=== PATIENT | female | born 1985 | race Caucasian/White ===

== ENCOUNTER 2017-03-21 09:10 | Emergency (ER) | payer OTHER ==
--- NOTE | 2017-03-21 10:48 | ED ---
Throat Pain/Nasal Congestion - HPI Summary HPI Summary: 32 female presents with complaints of ear pain bilaterally, sore throat headache , and congestion that began approximately 1 week ago. Patient states she was sick with a cough and congestion about 2 weeks ago that resolved however 2-3 days later she began getting these new symptoms. Patient has tried Mucinex for the past 5 days, as well as cold and flu medication. She also has used vicks and has been taking hot showers without any relief. Patient states she feels congested but is unable to blow her nose due to ear pain and nothing comes out. Admits to subjective fever/chills. Denies cough, nausea, vomiting and difficulty breathing. Denies PMHx and any other complaints. Nothing makes symptoms better or worse. - History of Current Complaint Chief Complaint: UCRespiratory Time Seen by Provider: 03/21/17 10:08 Hx Obtained From: Patient Onset/Duration: Sudden Onset, Lasting Weeks - 1, Worse Since Severity: Mild Associated Signs And Symptoms: Positive: Dysphagia, Sinus Discomfort, Nasal Discharge Cough: None - Allergies/Home Medications Allergies/Adverse Reactions: Allergies Allergy/AdvReac Type Severity Reaction Status Date / Time Latex Allergy Severe HIVES/ITCHI Verified 03/31/14 08:54 NG PMH/Surg Hx/FS Hx/Imm Hx Endocrine/Hematology History: Denies: Hx Diabetes Cardiovascular History: Denies: Hx Hypertension Respiratory History: Denies: Hx Asthma Musculoskeletal History: Reports: Hx Tendonitis - RIGHT WRIST Sensory History: Reports: Hx Contacts or Glasses - GLASSES Denies: Hx Hearing Aid Opthamlomology History: Reports: Hx Contacts or Glasses - GLASSES Psychiatric History: Reports: Hx Anxiety - MED NEEDED - Surgical History Surgery Procedure, Year, and Place: CHOLECYSTECTOMY 1997 [facility]. RIGHT FOOT-EXTRA BONE AGE 20 [facility]. HEAD/NECK SURGERY AGE 21 [facility]. RIGHT WRIST/HAND-2013 Hx Anesthesia Reactions: No - Immunization History Immunizations Up to Date: Yes Infectious Disease History: No Infectious Disease History: Denies: Hx Clostridium Difficile, History Other Infectious Disease, Traveled Outside the [place] in Last 30 Days - Family History Known Family History: Positive: Hypertension - Social History Alcohol Use: Occasionally Alcohol Amount: 2 DRINKS Substance Use Type: Reports: None Smoking Status (MU): Light Every Day Tobacco Smoker Type: Cigarettes Amount Used/How Often: 1/4 PPD Length of Time of Smoking/Using Tobacco: 10 YRS Have You Smoked in the Last Year: Yes Review of Systems Positive: Fever, Chills Eyes: Negative Positive: Sore Throat, Ear Ache, Nasal Discharge Cardiovascular: Negative Respiratory: Negative Gastrointestinal: Negative Musculoskeletal: Negative Neurological: Negative Positive: Headache All Other Systems Reviewed And Are Negative: Yes Physical Exam Triage Information Reviewed: Yes Vital Signs On Initial Exam: Initial Vitals Temp Pulse Resp BP Pulse Ox 97.3 F 90 18 138/88 99 03/21/17 09:29 03/21/17 09:29 03/21/17 09:29 03/21/17 09:29 03/21/17 09:29 bp slightly elevated. recommended follow up with PCP Vital Signs Reviewed: Yes Appearance: Positive: No Pain Distress, Well-Nourished, Ill-Appearing Skin: Positive: Warm, Skin Color Reflects Adequate Perfusion, Dry Head/Face: Positive: Normal Head/Face Inspection Eyes: Positive: Normal, Conjunctiva Clear ENT: Positive: Hearing grossly normal, Pharyngeal erythema, Nasal congestion, TMs normal - fluid behind TM b/l, Tonsillar swelling. Negative: Nasal drainage , TM bulging, TM dull, TM red, Tonsillar exudate, Trismus, Muffled/hoarse voice Dental: Positive: Cervical Lymphadenopathy Neck: Positive: Supple, Nontender Respiratory/Lung Sounds: Positive: Clear to Auscultation, Breath Sounds Present. Negative: Rales, Rhonchi, Wheezes Cardiovascular: Positive: Normal, RRR, Pulses are Symmetrical in both Upper and Lower Extremities Abdomen Description: Positive: Nontender, Soft Bowel Sounds: Positive: Present Musculoskeletal: Positive: Normal, Strength/ROM Intact Neurological: Positive: Normal, Sensory/Motor Intact, Alert, Oriented to Person Place, Time Psychiatric: Positive: Normal AVPU Assessment: Alert Diagnostics - Vital Signs Vital Signs Temp Pulse Resp BP Pulse Ox 03/21/17 09:29 97.3 F 90 18 138/88 99 - Laboratory Lab Statement: Any lab studies that have been ordered have been reviewed, and results considered in the medical decision making process. EENT Course/Dx - Course Course Of Treatment: strep culture obtained and negative. patient will be treated symptomatically with zyrtec-d, flonase and continue mucinex and ibuprofen. hot showers and humidified air. fluids and rest. follow up. aware of worsening signs and symptoms. - Differential Diagnoses Differential Diagnoses: Allergic Rhinitis, Cerumen Impaction, Influenza, Otitis Externa, Otitis Media, Sinusitis, Tonsilitis, Uveitis, URI/Bronchitis - Diagnoses Provider Diagnoses: URI (upper respiratory infection) Discharge - Discharge Plan Condition: Stable Disposition: HOME Prescriptions: Cetirizine-Pseudoephedrine [Zyrtec-D Allergy/Congesti] 1 tab PO DAILY #20 tab Fluticasone NASAL * [Flonase *] 2 spray BOTH NARES DAILY #1 spray Patient Education Materials: Upper Respiratory Infection (ED), Allergic Rhinitis (ED) Forms: *Work Release Referrals: Tommy Issa MD [Primary Care Provider] - Additional Instructions: Continue taking Mucinex as desired. Ibuprofen for pain and fevers. TAke Zyrtec-D which is over the counter to help with fluid build up, congestion and pressure behind ears. Use flonase nasal spray to help with nasal congestion while symptoms persist. Chloraseptic spray to help soothe throat. Drink plenty of fluids and get plenty of rest. Take hot showers and use humidifier at night if able. Follow up with PCP, re-check BP. If symptoms worsen or do not improve in the next 7 days please seek medical attention.
[2017-03-21] MEDS ORDERED: Ibuprofen TAB* 600 MG PO ONE (10:54)
[2017-03-21 11:24] VITALS: BP 135/79
== END 2017-03-21 11:25 | disposition home or self-care (01) ==
LOC: UCEAST 09:10
DX: J06.9 Acute upper respiratory infection, unspecified (principal); F41.9 Anxiety disorder, unspecified; Z90.49 Acquired absence of other specified parts of digestive tract; Z91.040 Latex allergy status; F17.210 Nicotine dependence, cigarettes, uncomplicated
CPT/HCPCS: 87651; 99212; A9270-GY; G0463

== ENCOUNTER 2017-08-01 07:25 | Day surgery (SDC) | payer OTHER ==
[~2017-08-01 07:25] MED LIST: Buffered Lidocaine 0.9% SYRIN* 5 ML/SYR SYRINGE INTRADERM ONE; Dexamethasone IV* 4 MG/ML 1 ML (4 MG) IV SLOW PU ONE; Famotidine IV* 10 MG/ML 2 ML (20 mg) IV ONE
[2017-08-01] MEDS ORDERED: Famotidine IV* 10 MG/ML 2 ML (20 mg) ONE (07:36)
[2017-08-01] MEDS ORDERED: Dexamethasone IV* 4 MG/ML 1 ML (4 MG) ONE (07:36)
[2017-08-01] MEDS ORDERED: fentaNYL* 50 MCG/ML 2 ML VIAL (100 MCG VIAL) ONE ×2 (08:49→10:12)
[2017-08-01] MEDS ORDERED: Mivacurium Chloride* 20 MG/10 ML VIAL IV ONE (08:49)
[2017-08-01] MEDS ORDERED: Lidocaine 2% PF * 5 ML VIAL ONE (08:49)
[2017-08-01] MEDS ORDERED: Midazolam* 1 MG/ML 2 ML VIAL (2 MG) ONE (08:49)
[2017-08-01] MEDS ORDERED: Propofol* 10 MG/ML 20 ML BTL IV PUSH ONE (08:49)
[2017-08-01] MEDS ORDERED: fentaNYL* 50 MCG/ML 2 ML VIAL (100 MCG VIAL) IV PRN (08:52)
[2017-08-01] MEDS ORDERED: oxyCODONE/Acetamin 5/325 MG* TAB PO PRN (08:52)
[2017-08-01] MEDS ORDERED: PROCHLORPERAZINE INJ 5 MG/ML 2 ML VIAL IV PRN (08:52)
[2017-08-01] MEDS ORDERED: Ondansetron INJ* 2 MG/ML VIAL ONE (09:14)
[2017-08-01] MEDS ORDERED: Glycopyrrolate IV* 0.2 MG/ML 1 ML VIAL ONE (09:32)
[2017-08-01] MEDS ORDERED: Neostigmine Methylsulfate* 2 MG/2 ML SYRINGE ONE (09:32)
[2017-08-01] MEDS ORDERED: PROCHLORPERAZINE INJ 5 MG/ML 2 ML VIAL ONE (10:07)
[2017-08-01] MEDS ORDERED: HYDROcodone/ACET. 7.5/325 LIQ* 15 ML UDC ONE (10:39)
[2017-08-01 11:00] VITALS: BP 136/57
--- NOTE | 2017-08-01 15:40 | OP ---
DATE OF OPERATION: 08/01/17 - [facility] DATE OF : 89 SURGEON: Min Marcum MD ANESTHESIOLOGIST: Yun Roldan MD ANESTHESIA: General PRE-OP DIAGNOSIS: Chronic tonsillitis. POST-OP DIAGNOSIS: Chronic tonsillitis. OPERATIVE PROCEDURE: Tonsillectomy. BRIEF HISTORY: This is a 32-year-old with recurring tonsillitis as well as frequent recurring peritonsillar abscess. Has elected for surgical therapy. DESCRIPTION OF PROCEDURE: The patient was taken to the operating room, general anesthetic was given, the patient was intubated. Tongue, mandible, and soft palate were retracted. Coblator was used to remove the tonsils. Once hemostasis was obtained, the patient was awakened and sent to recovery room in stable condition. Instrument and sponge count correct. Blood loss minimal. [id number] #: [id number] MTDD
== END 2017-08-01 11:30 | disposition home or self-care (01) ==
LOC: OR 07:25
PROVIDERS: ATTEND Otolaryngology
DX: J35.01 Chronic tonsillitis (principal); J45.909 Unspecified asthma, uncomplicated; F17.200 Nicotine dependence, unspecified, uncomplicated
CPT/HCPCS: 81025; 88304; J0780; J1100; J2250; J2405; J2704; J3010

== ENCOUNTER 2018-03-29 08:47 | Emergency (ER) | payer OTHER ==
[2018-03-29 09:07] VITALS: BP 128/80
--- NOTE | 2018-03-29 10:28 | UC ---
Throat Pain/Nasal Julio HPI - HPI Summary HPI Summary: Patient is a 33-year-old female presenting to the with chief complaint of sweats and chills, sinus congestion, sinus pressure with green mucus rhinorrhea , cough. Denies any known fevers. Has not taken her temperature. She states she doesn't with a similar issue several months ago and treated with medications [id number] such as ayesha seltzer and TheraFlu. She denies any known allergies or history of sinus infections. Denies any shortness of breath. Symptoms began 2 days ago and have remained constant. - History of Current Complaint Chief Complaint: UCGeneralIllness Stated Complaint: SINUS INFECTION Time Seen by Provider: 03/29/18 09:56 Hx Obtained From: Patient Hx Last Menstrual Period: 1 week ?: No Onset/Duration: Sudden Onset Severity: Moderate Pain Intensity: 0 Pain Scale Used: 0-10 Numeric Cough: Nonproductive Associated Signs & Symptoms: Positive: Sinus Discomfort, Nasal Discharge - Epiglottits Risk Factors Epiglottis Risk Factors: Negative - Allergies/Home Medications Allergies/Adverse Reactions: Allergies Allergy/AdvReac Type Severity Reaction Status Date / Time latex Allergy Hives Verified 03/29/18 09:07 Home Medications: Home Medications Fexofenadine (NF) [Gia 180 (NF)] 1 tab PO DAILY 03/29/18 [History Confirmed 03/29/18] PMH/Surg Hx/FS Hx/Imm Hx Previously Healthy: Yes - Surgical History Surgical History: Yes Surgery Procedure, Year, and Place[place] [facility] [place]-EXTRA B[place] 20 [facility] [place] [facility] [place]HAND[place] [facility] [place] Tonsills 08/14 - Family History Known Family History: Positive: Hypertension - Social History Occupation: Employed Full-time Lives: With Family Alcohol Use: Occasionally Alcohol Amount: 2 glasses liquor on w/e Substance Use Type: None Smoking Status (MU): Light Every Day Tobacco Smoker Type: Cigarettes Amount Used/How Often: 1/2 PPD for 14 yrs Length of Time of Smoking/Using Tobacco: 10 YRS Have You Smoked in the Last Year: Yes - Immunization History Most Recent Tetanus Shot: UTD Review of Systems Constitutional: Chills Eyes: Negative ENT: Nasal Discharge, Sinus Congestion, Sinus Pain/Tenderness Respiratory: Cough Cardiovascular: Negative Gastrointestinal: Negative Genitourinary: Negative Neurovascular: Negative Musculoskeletal: Negative Neurological: Negative Is Patient Immunocompromised?: No All Other Systems Reviewed And Are Negative: Yes Physical Exam Triage Information Reviewed: Yes Appearance: Well-Appearing, Well-Nourished Vital Signs: Initial Vital Signs Temp 99 F 03/29/18 09:04 Pulse 71 03/29/18 09:04 Resp 18 03/29/18 09:04 BP 128/80 03/29/18 09:04 Pulse Ox 100 03/29/18 09:04 Vital Signs Reviewed: Yes Eye Exam: Normal Eyes: Positive: Conjunctiva Clear ENT: Positive: Nasal congestion, Nasal drainage, Sinus tenderness. Negative: Tonsillar swelling, Tonsillar exudate Neck exam: Normal Neck: Positive: Supple Respiratory Exam: Normal Respiratory: Positive: Chest non-tender Cardiovascular Exam: Normal Cardiovascular: Positive: RRR Musculoskeletal Exam: Normal Musculoskeletal: Positive: Strength Intact Psychological: Positive: Normal Response To Family Skin Exam: Normal Throat Pain/Nasal Course/Dx - Course Course Of Treatment: During the course of treatment, the patient's evaluated for sinus congestion and cough. She states a few months ago symptoms began but resolved with [id number] is. She states she feels she needs something stronger at this time. On physical examination, there is tenderness to the maxillary sinuses but no tenderness to the frontal sinuses. Denies any teeth pain. She is afebrile, but endorses sweats and chills. She is given Flonase, Sudafed and I've discussed taking a short course of an antibiotic only if symptoms persist. - Differential Dx/Diagnosis Differential Diagnosis/HQI/PQRI: Sinusitis, URI Provider Diagnoses: Sinusitis Discharge - Sign-Out/Discharge Documenting (check all that apply): Discharge/Admit/Transfer - Discharge Plan Condition: Stable Disposition: HOME Prescriptions: Amoxicillin/Clavulanate TAB* [Augmentin TAB 875*] 875 mg PO BID #10 tab Fluticasone NASAL SPRAY 50MCG* [Flonase NASAL SPRAY 50MCG*] 2 spray BOTH NARES DAILY #1 btl Pseudoephedrine HCl [Sudafed 24-Hour] 240 mg PO DAILY #10 tab.er.24h Patient Education Materials: Sinusitis (ED), Warm Compress or Soak (ED) Referrals: Tommy Issa MD [Primary Care Provider] - Additional Instructions: Medications as directed Return to the UC for any worsening symptoms - Billing Disposition and Condition Condition: STABLE Disposition: HOME
== END 2018-03-29 10:15 | disposition home or self-care (01) ==
LOC: UCEAST 08:47
DX: J32.9 Chronic sinusitis, unspecified (principal); Z91.040 Latex allergy status; Z90.49 Acquired absence of other specified parts of digestive tract; Z82.49 Family history of ischemic heart disease and other diseases of the circulatory system; F17.210 Nicotine dependence, cigarettes, uncomplicated
CPT/HCPCS: 99212; G0463

== ENCOUNTER 2018-09-01 08:09 | Emergency (ER) | payer OTHER ==
--- NOTE | 2018-09-01 10:15 | ED ---
Lower Extremity - HPI Summary HPI Summary: Patient is a 33-year-old female presenting to the ED with left lateral ankle pain after tripping over This morning. She denies any swelling or ecchymosis. She is unable to bear weight. Pain is currently a 10/10, constant and throbbing. She has never injured that ankle in the past. She denies any lower leg swelling or pain otherwise. She denies any numbness or tingling. Denies any color or temperature changes. She is otherwise healthy. She has not taken anything [id number] prior to arrival. - History of Current Complaint Chief Complaint: EDExtremityLower Stated Complaint: LEFT ANKLE INJURY Time Seen by Provider: 09/01/18 08:51 Hx Obtained From: Patient Hx Last Menstrual Period: 1 week Mechanism Of Injury: Twisted Onset of Pain: Hours Onset/Duration: Hours Severity Initially: Severe Severity Currently: Severe Pain Intensity: 10 Pain Scale Used: 0-10 Numeric Timing: Constant Location: Is Discrete @ - Left lateral ankle Character Of Pain: Aching, Throbbing Associated Signs And Symptoms: Negative: Swelling, Redness, Bruising Aggravating Factor(s): Standing, Ambulation Alleviating Factor(s): Rest Able to Bear Weight: No - Risk Factors Gout Risk Factors: Negative DVT Risk Factors: Negative Septic Arthritis Risk Factor: Negative - Allergies/Home Medications Allergies/Adverse Reactions: Allergies Allergy/AdvReac Type Severity Reaction Status Date / Time latex Allergy Hives Verified 03/29/18 09:07 PMH/Surg Hx/FS Hx/Imm Hx Previously Healthy: Yes Endocrine/Hematology History: Denies: Hx Diabetes Cardiovascular History: Denies: Hx Hypertension Respiratory History: Denies: Hx Asthma Musculoskeletal History: Reports: Hx Tendonitis - RIGHT WRIST Sensory History: Reports: Hx Contacts or Glasses - glasses Denies: Hx Hearing Aid Opthamlomology History: Reports: Hx Contacts or Glasses - glasses Psychiatric History: Reports: Hx Anxiety - no longer on med - Surgical History Surgery Procedure, Year, and Place: CHOLECYSTECTOMY 1997 [facility] [place]. RIGHT FOOT-EXTRA BONE REMOVED AGE 20 [facility] [place]. HEAD/NECK SURGERY 2005 [facility] [place]. RIGHT WRIST/HAND-2013 [facility] [place]. Tonsills 08/14 Hx Anesthesia Reactions: No Infectious Disease History: No Infectious Disease History: Denies: Hx Clostridium Difficile, History Other Infectious Disease, Traveled Outside the [place] in Last 30 Days - Family History Known Family History: Positive: Hypertension - Social History Occupation: Employed Full-time Lives: With Family Alcohol Use: Occasionally Alcohol Amount: 2 glasses liquor on w/e Hx Substance Use: No Substance Use Type: Reports: None Smoking Status (MU): Light Every Day Tobacco Smoker Type: Cigarettes Amount Used/How Often: 1/2 PPD for 14 yrs Length of Time of Smoking/Using Tobacco: 10 YRS Have You Smoked in the Last Year: Yes Review of Systems Constitutional: Negative Negative: Fever, Chills, Fatigue, Skin Diaphoresis Negative: Palpitations, Chest Pain Negative: Shortness Of Breath, Cough Genitourinary: Negative Positive: no symptoms reported, see HPI Positive: Arthralgia, Myalgia Skin: Negative Neurological: Negative All Other Systems Reviewed And Are Negative: Yes Physical Exam Triage Information Reviewed: Yes Vital Signs On Initial Exam: Initial Vitals Temp Pulse Resp BP Pulse Ox 97.9 F 60 14 135/100 99 09/01/18 08:37 09/01/18 08:37 09/01/18 08:37 09/01/18 08:37 09/01/18 08:37 Vital Signs Reviewed: Yes Appearance: Positive: Well-Appearing, Well-Nourished Skin: Positive: Warm, Skin Color Reflects Adequate Perfusion Head/Face: Positive: Normal Head/Face Inspection Eyes: Positive: EOMI, JOÃO, Conjunctiva Clear Neck: Positive: Supple Respiratory/Lung Sounds: Positive: Clear to Auscultation, Breath Sounds Present Cardiovascular: Positive: RRR, Pulses are Symmetrical in both Upper and Lower Extremities Musculoskeletal: Positive: Pain @ - left lateral ankle pain without swelling or ecchymosis Neurological: Positive: Speech Normal Psychiatric: Positive: Affect/Mood Appropriate Diagnostics - Vital Signs Vital Signs Temp Pulse Resp BP Pulse Ox 09/01/18 08:37 97.9 F 60 14 135/100 99 - Laboratory Lab Statement: Any lab studies that have been ordered have been reviewed, and results considered in the medical decision making process. - Radiology No standard instances Radiology Interpretation Completed By: ED Physician - Read by myself, Anne-Marie Elder PA-C, Radiologist Lower Extremity Course/Dx - Course Course Of Treatment: During the course treatment, the patient's evaluated for left lateral ankle pain. There is no swelling or ecchymosis noted. No obvious numbness or tingling and physical examination. Pulses +2 intact bilaterally. X -ray obtained which is negative for any acute fractures. She will be diagnosed with grade 2 ankle sprain. She is given gel splint and crutches. Encouraged ibuprofen and to bear weight only as tolerated. Note given for work. - Diagnoses Provider Diagnoses: Ankle sprain Discharge - Sign-Out/Discharge Documenting (check all that apply): Patient Departure - Discharge Plan Condition: Stable Disposition: HOME Patient Education Materials: Ankle Sprain (ED) Forms: *Work Release Referrals: Mich Bello MD [Medical Doctor] - Tommy Issa MD [Primary Care Provider] - Additional Instructions: Ibuprofen 600mg three times daily Crutches Ice Elevation Start bearing weight as tolerated - Billing Disposition and Condition Condition: STABLE Disposition: Home
--- NOTE | 2018-09-01 10:25 | RAD ---
INDICATION: Lateral left ankle pain after a fall COMPARISON: None. TECHNIQUE: 3 views of the left ankle were obtained. FINDINGS: The well corticated bones exhibit normal alignment. Joint spaces appear maintained. No fracture is seen. IMPRESSION: Normal ankle radiograph. If the patient's symptoms persist, follow-up imaging is recommended.
[2018-09-01 10:41] VITALS: BP 131/62
== END 2018-09-01 10:41 | disposition home or self-care (01) ==
LOC: ED 08:09
DX: S93.402A Sprain of unspecified ligament of left ankle, initial encounter (principal); F17.210 Nicotine dependence, cigarettes, uncomplicated; W01.0XXA Fall on same level from slipping, tripping and stumbling without subsequent striking against object, initial encounter; Y92.9 Unspecified place or not applicable
CPT/HCPCS: 99282

== ENCOUNTER 2019-04-13 10:00 | Emergency (ER) | payer OTHER ==
--- NOTE | 2019-04-13 10:47 | ED ---
Lower Extremity - HPI Summary HPI Summary: The patient is a 34 y/o F presenting to [facility] with a chief complaint of rolling her left ankle after missing a step while going down her stairs this morning. While there isn't much pain in the ankle, the left foot is in pain, rated 7/10 in severity, on the lateral side from the ankle to the fifth toe, causing a decreased ROM in the ankle. She has been using ice to relieve some pain and swelling. No previous injury to the left ankle or foot. Current light every day smoker, occasional EtOH, no substance use. - History of Current Complaint Chief Complaint: EDExtremityLower Stated Complaint: LT FOOT INJURY PER PT Time Seen by Provider: 04/13/19 10:15 Hx Obtained From: Patient Hx Last Menstrual Period: 1 week Mechanism Of Injury: Twisted - rolled when going down the stairs Onset of Pain: Immediate, Post Accident Onset/Duration: Hours Severity Initially: Moderate Severity Currently: Moderate Pain Intensity: 7 Pain Scale Used: 0-10 Numeric Timing: Lasting Minutes Location: Is Discrete @ - left lateral foot from ankle to fifth toe Character Of Pain: Aching Associated Signs And Symptoms: Positive: Swelling, Other - decreased ROM in the left ankle Aggravating Factor(s): Movement Alleviating Factor(s): Rest, Ice - Allergies/Home Medications Allergies/Adverse Reactions: Allergies Allergy/AdvReac Type Severity Reaction Status Date / Time latex Allergy Hives Verified 04/13/19 10:11 PMH/Surg Hx/FS Hx/Imm Hx Endocrine/Hematology History: Denies: Hx Diabetes Cardiovascular History: Denies: Hx Hypercholesterolemia, Hx Hypertension Respiratory History: Denies: Hx Asthma Musculoskeletal History: Reports: Hx Tendonitis - RIGHT WRIST Sensory History: Reports: Hx Contacts or Glasses - glasses Opthamlomology History: Reports: Hx Contacts or Glasses - glasses Psychiatric History: Reports: Hx Anxiety - no longer on med - Surgical History Surgery Procedure, Year, and Place: CHOLECYSTECTOMY 1997 [facility] [place]. RIGHT FOOT-EXTRA BONE REMOVED AGE 20 [facility] [place]. HEAD/NECK SURGERY 2005 [facility] [place]. RIGHT WRIST/HAND-2013 [facility] [place]. Tonsills 08/14 Hx Anesthesia Reactions: No Infectious Disease History: No Infectious Disease History: Denies: Hx Clostridium Difficile, History Other Infectious Disease, Traveled Outside the [place] in Last 30 Days - Family History Known Family History: Positive: Hypertension - Social History Alcohol Use: Occasionally Alcohol Amount: 2 glasses liquor on w/e Hx Substance Use: No Substance Use Type: Reports: None Hx Tobacco Use: Yes Smoking Status (MU): Light Every Day Tobacco Smoker Type: Cigarettes Amount Used/How Often: 1/2 PPD for 14 yrs Length of Time of Smoking/Using Tobacco: 10 YRS Have You Smoked in the Last Year: Yes Review of Systems Positive: Decreased ROM - in left ankle, Other - pain in the left foot worst from the ankle to the fifth toe Positive: Other - mild swelling in the left foot All Other Systems Reviewed And Are Negative: Yes Physical Exam - Summary Physical Exam Summary: VITAL SIGNS: Reviewed. GENERAL: Patient is a well-developed and nourished female who is lying comfortable in the stretcher. Patient is not in any acute respiratory distress. HEAD AND FACE: No signs of trauma. No ecchymosis, hematomas or skull depressions. No sinus tenderness. EYES: PERRLA, EOMI x 2, No injected conjunctiva, no nystagmus. EARS: Hearing grossly intact. Ear canals and tympanic membranes are within normal limits. MOUTH: Oropharynx within normal limits. NECK: Supple, trachea is midline, no adenopathy, no JVD, no carotid bruit, no c- spine tenderness, neck with full ROM. CHEST: Symmetric, no tenderness at palpation LUNGS: Clear to auscultation bilaterally. No wheezing or crackles. CVS: Regular rate and rhythm, S1 and S2 present, no murmurs or gallops appreciated. ABDOMEN: Soft, non-tender. No signs of distention. No rebound no guarding, and no masses palpated. Bowel sounds are normal. EXTREMITIES: Decreased ROM, tenderness in the lateral aspect of the left foot. FROM in all other major joints, no edema, no cyanosis or clubbing. NEURO: Alert and oriented x 3. No acute neurological deficits. Speech is normal and follows commands. SKIN: Dry and warm. Triage Information Reviewed: Yes Vital Signs On Initial Exam: Initial Vitals Temp Pulse Resp BP Pulse Ox 97.7 F 90 16 144/76 98 04/13/19 10:06 04/13/19 10:04/13/19 10:04/13/19 10:04/13/19 10:06 Vital Signs Reviewed: Yes Procedures - Splinting Left Lower Extremity Location: left fifth metatarsal Splint: posterior walking Pre-Proc Neuro Vasc Exam: normal Post-Proc Neuro Vasc Exam: normal Diagnostics - Vital Signs Vital Signs Temp Pulse Resp BP Pulse Ox 04/13/19 10:06 97.7 F 90 16 144/76 98 - Laboratory Lab Statement: Any lab studies that have been ordered have been reviewed, and results considered in the medical decision making process. - Radiology L Ankle XR Radiology Interpretation Completed By: Radiologist Summary of Radiographic Findings: Oblique fracture of the head of the fifth metatarsal. ED physician has reviewed this report. L Foot XR Radiology Interpretation Completed By: Radiologist Summary of Radiographic Findings: Oblique fracture of the head of the fifth metatarsal. ED physician has reviewed this report. Re-Evaluation - Re-Evaluation First Eval Re-Evaluation Time: 12:05 Comment: I placed a posterior splint on the patient's left foot. We discussed discharge plan with follow up with Dr. Coley from orthopedics. Lower Extremity Course/Dx - Course Assessment/Plan: The patient is a 34 y/o F presenting to [facility] with a chief complaint of rolling her left ankle after missing a step while going down her stairs this morning. While there isn't much pain in the ankle, the left foot is in pain, rated 7/10 in severity, on the lateral side from the ankle to the fifth toe, causing a decreased ROM in the ankle. She has been using ice to relieve some pain and swelling. No previous injury to the left ankle or foot. Current light every day smoker, occasional EtOH, no substance use. X-ray of the left foot and ankle impression: Oblique fracture of the head of the fifth metatarsal. The patient did not require any pain medication. Patient was placed in a posterior splint and she is using her crutches. The patient will be discharged home with follow-up with orthopedics. The patient prefers Dr. Coley , therefore the patient will be given up referred to Dr. Coley. Patient is to be non-weight bearing and take ibuprofen for pain. Patient understands and agrees. - Diagnoses Provider Diagnoses: Fracture of fifth metatarsal bone of left foot Discharge - Sign-Out/Discharge Documenting (check all that apply): Patient Departure - Patient will be discharged home. Patient Received Moderate/Deep Sedation with Procedure: No - Discharge Plan Condition: Good Disposition: HOME Patient Education Materials: Foot Fracture in Adults (ED) Forms: *Work Release Referrals: Tommy Issa MD [Primary Care Provider] - Kiko Coley MD [Medical Doctor] - 3 Days Additional Instructions: Follow up with Dr. Coley from orthopedics. RETURN TO THE EMERGENCY DEPARTMENT FOR ANY NEW OR WORSENING SYMPTOMS. - Billing Disposition and Condition Condition: GOOD Disposition: Home - Attestation Statements Document Initiated by Scribe: Yes Documenting Scribe: Beatriz Berger Provider For Whom Melonie is Documenting (Include Credential): Dr. Joshua Lu MD Scribe Attestation: Beatriz Craig, scribed for Dr. Joshua Lu MD on 04/13/19 at 1230. Scribe Documentation Reviewed: Yes Provider Attestation: The documentation as recorded by the Beatriz salmeron accurately reflects the service I personally performed and the decisions made by me, Dr. Joshua Lu MD Status of Scribe Document: Ready
[2019-04-13 12:57] VITALS: BP 181/109
== END 2019-04-13 12:56 | disposition home or self-care (01) ==
LOC: ED 10:00
DX: S92.355A Nondisplaced fracture of fifth metatarsal bone, left foot, initial encounter for closed fracture (principal); X50.1XXA Overexertion from prolonged static or awkward postures, initial encounter; Y92.9 Unspecified place or not applicable; Z91.040 Latex allergy status; F17.210 Nicotine dependence, cigarettes, uncomplicated
CPT/HCPCS: 99283

== ENCOUNTER 2019-08-16 09:27 | Emergency (ER) | payer OTHER ==
--- OUTSIDE RECORDS SUMMARY | 2019-08-16 09:31 | XMS REPORT | Continuity of Care Document ---
:1985 External Reference #:[id number] Author Name Shai May M.D. 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 Medicine Problems Description No Information Available Social History Type Date Description Comments Sex Unknown ETOH Use Drinks 2 Alcoholic Beverages Per Week Tobacco Use Start: Unknown smokes 6 to 7 cigarettes per day Smoking Status Reviewed: 07/15/19 smokes 6 to 7 cigarettes per day Exercise Type/Frequency Does not exercise Allergies, Adverse Reactions, Alerts Active Allergies Reaction Severity Comments Date Latex 02/05/2014 Medications Active Medications SIG Qnty Indications Ordering Provider Date Ibuprofen as needed Unknown 200mg Tablets Immunizations Description No Information Available Vital Signs Date Vital Result Comment 07/15/2019 8:14am Height 65 inches 5'5" Heart Rate 54 /min BP Systolic 116 mmHg BP Diastolic 72 mmHg Respiratory Rate 12 /min Body Temperature 97.4 F Pain Level 0 06/05/2019 9:22am Height 65 inches 5'5" Weight 222.00 lb BP Systolic 124 mmHg BP Diastolic 76 mmHg Respiratory Rate 18 /min Pain Level 5 BMI (Body Mass Index) 36.9 kg/m2 Results Description No Information Available Procedures Description No Information Available Medical Devices Description No Information Available Encounters Type Date Location Provider Dx Diagnosis Office Visit 06/05/2019 Orthopedic Shai May M76.822 Posterior tibial 9:30a [facility] tendinitis, left leg Office Visit 05/29/2019 Orthopedic Shai May S92.352D Disp fx of 5th 8:15a [facility] metatarsal bone, l ft, 7thD 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 left foot, init Assessments Date Code Description Provider 07/15/2019 S92.352D Displaced fracture of fifth metatarsal bone, Shai May M.D. 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 feet 06/05/2019 M76.822 Posterior tibial tendinitis, left leg Shai May M.D. 05/29/2019 S92.352D Displaced fracture of fifth metatarsal bone, Shai May M.D. 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 feet 05/08/2019 S92.352D Displaced fracture of fifth metatarsal bone, Shai May M.D. 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 feet 04/15/2019 S92.352A Displaced fracture of fifth metatarsal bone, Shai May M.D. left foot, init Plan of Treatment 07/15/2019 - Shai May M.D.S92.352D Displaced fracture of fifth metatarsal bone, left foot, subsFollow up:Follow up: As needed in Spring to discuss genxifyI84.89 Other specified congenital deformities of feet Functional Status Description No Information Available Mental Status Description No Information Available Referrals Description No Information Available
--- OUTSIDE RECORDS SUMMARY | 2019-08-16 09:31 | XMS REPORT | Continuity of Care Document ---
:1985 Author Organization [facility] Address [address] [place] [address] Phone Care Team Providers Name Role Phone Natasha Guadalupe NP Unavailable Unavailable Allergies, Adverse Reactions, Alerts Substance Reaction Status latex Rash Active Medications Medication Instructions Dosage Effective Dates Status Comments (start - stop) Mirena 20 mcg/24 hr Insert IU - Active (5 years) intrauterine device XANAX (unknown take 1 tablet by Not Available - Active strength) oral route 3 times every day Problems Condition Effective Dates (start - Clinical Status Comments stop) Human immunodeficiency virus [HIV] - counseling Encounter for test, result negative Encounter for test, result negative Human immunodeficiency virus [HIV] - counseling Encounter for screening for human - immunodeficiency virus Encntr screen for infections w sexl mode of transmiss Acute vaginitis Encounter for routine checking of intrauterine contracep dev Encounter for oth general cnsl and - advice on contraception Encntr screen for dis of the bld/bld-form org/immun mechnsm Encounter for elective termination of 10 weeks gestation of Encounter for insertion of intrauterine contraceptive device Encounter for elective termination of Encounter for test, result positive Less than 8 weeks gestation of Encounter for elective termination of Less than 8 weeks gestation of Encounter for surveillance of other contraceptives Encounter for elective termination of Encounter for test, result positive Encntr screen for dis of the bld/bld-form org/immun mechnsm Encntr screen for infections w sexl mode of transmiss Encounter for initial prescription of contraceptive pills LABORATORY EXAM NOS RhD positive - Active Procedures Procedure Date PREVENTIVE COUNSELING, Under 8 Minutes URINE TEST MA ONLY VISIT EST OTHER Medical Services Contraceptive [employer].Svc. Other [employer]Svc. STI Results Test Name Date and Time Measure Units Reference Range Abnormal Flag Status Comments Panel Description: High Sensitivity Urine Test Final High Sensitivity Urine 10:38:34 NegativeInternal Quality Final Test Control: Positive Advance Directives Directive Yes / No Effective Date File Name No information Encounters Encounter Practice Location Reason(s) Diagnoses Date Provider Providers Description For Visit Copied on Encounter [facility] [place] Test immunodeficiency Natasha. Provider: Flor (chief virus [HIV] [address] complaint) counselingEncounter [place], [address] [place] result negative [place], , , [place], [place], [place], [address], [place], [address]. [id number], [place]. [place] tel:[phone] [facility] En[facility] for [facility] [place] test, . Provider: Flor result [address] negativeHuman [place], [place], [address], [address] [place] virus [HIV] [place], [place] [address], , [place], counseling[place]ounter [place], [place], [place], [place] [address]. [place], [address]. [id number], human tel:[phone] tel:[phone] [place] immunodeficiency [id number] tel:[phone] virusEncntr screen [id number] for infections w sexl mode of transmissAcute vaginitisEncounter for routine checking of intrauterine contracep devEncounter for oth general cnsl and advice on contraception [facility] Encntr screen for Mar-0 [facility] [place] dis of the Sarai. Provider: Flor bld/bld-form [address] org/immun [place] E[place]se [place], [address] [place] for elective [place], [place] [address] [place], [place], termination of [place], [place], [place], [id number] weeks [address]. [place], [address]. [id number], gestation of tel:[phone] tel:[phone] [place] pregnancyEncounter [id number] [id number] tel:[phone] for insertion of [id number] intrauterine contraceptive device [facility] Encounter for Dec-0 [facility] [place] elective 2 Natasha. [place] termination of 7 [address] [place], [address] [place], St, [place], [address], [id number], [place]. [place] tel:[phone] [facility] En[facility] for [facility] [place] test, . [place] result positiveLess 7 [address] than 8 weeks [place], [address] [place], , [place], [address]. [id number], tel:[phone] [place] [phone] tel:[phone] [facility] Encounter for May- [facility] [place] elective 2-201 Sarai. [place] termination of [address] pregnancyLess than [place] [facility] [place], [address] [place] of [place], , [place], pregnancyEncounter [place], [place], [place] [address]. [id number], other tel:[phone] [place] contraceptives [id number] tel:[phone] [facility] Encounter for May- [facility] [place] elective 1 Sarai. [place] termination of 6 [address] [place], [address] [place], St, [place], [address]. [id number], tel:[phone] [place] [phone] tel:[phone] [facility] Encounter for May-0 [facility] [place] test, Natasha. [place] result [address] positiveEncntr [place] [facility] [place], [address], [address] [place] the bld/bld-form [place], , [place], org/immun [place], [place], mechnsmEncntr [address], [id number], screen for [place]. [place] infections w sexl tel:+[phone] mode of [id number] transmissEncounter for initial prescription of contraceptive pills [facility] LABORATORY EXAM NOS [facility] [place] [address]. [place] [address] [place], [address] [place], St, [place], [place], [address]. [id number], tel:+ [place] [phone] tel:[phone] Family History Family Member Diagnosis Age At Onset Sister No history of Stroke before age 65 Mother No history of Myocardial infarction before age 65 Father No history of Stroke before age 55 Father No history of Myocardial infarction before age 55 Mother No history of Stroke before age 65 Brother No history of Stroke before age 55 Sister No history of Myocardial infarction before age 65 Brother No history of Myocardial infarction before age 55 Immunizations Vaccine Date Status Comments No information Payers Payer name Insurance type Covered green party ID Authorization(s) Total Care [facility] CI [id number] Social History Type Description Quantity Date Captured Comments Alcohol Use Details Unknown Caffeine Use Unknown Details Tobacco Use Status Moderate cigarette smoker (10-19 cigs/day) Smoking Status Heavy tobacco smoker Smoking Tobacco Use Cigarette: No Details Available Cigarette: 10 Cigarettes per day Details Sex Female Vital Signs Date / Height Weight BMI Pulse Blood Temperature Respiratory Body Head BMI Pulse Inhaled Time: Rate Pressure Rate Surface Circumference percentile Ox Ox Area No information Chief Complaint And Reason For Visit Most recent encounter only, dated '07/10/2019 10:00'. Test ( chief complaint) Reason For Referral Reason For Referral No information Plan Of Treatment Date Type Action Status Goal Tobacco cessation counseling completed Appointment STAGE, DARRIUS -chk IUD BOOKED History Of Present Illness Encounter Date Complaint History Of Present Illness No information Functional Status Date Functional Assessment No information Medications Administered Medication Instructions Dosage Effective Dates (start - stop) Status Comments No information Instructions Date Instruction Additional Information No information Assessments Type Assessment Date assessment Human immunodeficiency virus [HIV] counseling assessment Encounter for test, result negative Goals Health Concern Goal Type Priority Status Date No information Medical Equipment Description Device [place] Device Identifier Effective Dates (start - stop ) Status No information Mental Status Date Cognitive Assessment No information Health Concerns Observation Date No information Concern Status Date No information
[2019-08-16 09:34] VITALS: BP 119/81
[2019-08-16] MEDS ORDERED: predniSONE TAB* 20 MG PO ONE (09:57)
--- NOTE | 2019-08-16 09:57 | UC ---
Throat Pain/Nasal Julio HPI - HPI Summary HPI Summary: The patient is a 34-year-old female with a 3 day history of moderate to severe sore throat associated with some right ear pain. She denies runny nose but states that she has been blowing her nose more than normal. She has decreased hearing in the right ear. She denies any nausea vomiting or diarrhea. She denies any chest pain or shortness of breath. She has felt feverish and has had chills. She has no headache or myalgias. - History of Current Complaint Chief Complaint: UCGeneralIllness Stated Complaint: THROAT PAIN Time Seen by Provider: 08/16/19 09:34 Hx Obtained From: Patient Hx Last Menstrual Period: mirena Onset/Duration: Gradual Onset, Lasting Days Severity: Severe Pain Intensity: 9 Pain Scale Used: 0-10 Numeric Cough: None Associated Signs & Symptoms: Positive: Fever - piero Related History: Prior ENT Surgery, T & A - Epiglottits Risk Factors Epiglottis Risk Factors: Negative - Allergies/Home Medications Allergies/Adverse Reactions: Allergies Allergy/AdvReac Type Severity Reaction Status Date / Time latex Allergy Hives Verified 04/13/19 10:11 PMH/Surg Hx/FS Hx/Imm Hx Previously Healthy: Yes - Surgical History Surgical History: Yes Surgery Procedure, Year, and Place: CHOLE[place] [facility] [place] FOOT-EXTRA BONE REMOVED AGE 20 [facility] [place]. HEAD/NECK SURGERY 2005 [facility] [place]. RIGHT WRIST/HAND-2013 [facility] [place]. Tonsills 08/14 - Family History Known Family History: Positive: Hypertension - Social History Alcohol Use: Occasionally Alcohol Amount: 2 glasses liquor on w/e Substance Use Type: None Smoking Status (MU): Light Every Day Tobacco Smoker Type: Cigarettes Amount Used/How Often: 1/2 PPD for 14 yrs Length of Time of Smoking/Using Tobacco: 10 YRS Have You Smoked in the Last Year: Yes - Immunization History Most Recent Tetanus Shot: UTD Review of Systems All Other Systems Reviewed And Are Negative: Yes Constitutional: Positive: Fever - piero, Chills Skin: Positive: Negative Eyes: Positive: Negative ENT: Positive: Sore Throat, Ear Ache Respiratory: Positive: Negative Cardiovascular: Positive: Negative Gastrointestinal: Positive: Negative Genitourinary: Positive: Negative Motor: Positive: Negative Neurovascular: Positive: Negative Musculoskeletal: Positive: Negative Neurological: Positive: Negative Psychological: Positive: Negative Physical Exam Triage Information Reviewed: Yes Appearance: Well-Appearing, No Pain Distress, Well-Nourished Vital Signs: Initial Vital Signs Temp 98.6 F 08/16/19 09:31 Pulse 64 08/16/19 09:31 Resp 16 08/16/19 09:31 BP 119/81 08/16/19 09:31 Pulse Ox 100 08/16/19 09:31 Vital Signs Reviewed: Yes Eyes: Positive: Conjunctiva Clear ENT: Positive: Pharyngeal erythema, TM bulging - R, Uvula midline. Negative: Hearing grossly normal - decreased right ear, Nasal congestion, Nasal drainage, Tonsillar swelling, Tonsillar exudate, Trismus, Muffled voice, Hoarse voice, Sinus tenderness Neck: Positive: Supple, Nontender, Enlarged Nodes @ - ant cerv Respiratory: Positive: Lungs clear, Normal breath sounds, No respiratory distress, No accessory muscle use Cardiovascular: Positive: RRR, No Murmur Abdomen Description: Positive: Nontender. Negative: CVA Tenderness (R), CVA Tenderness (L), Distended, Guarding Musculoskeletal: Positive: ROM Intact, No Edema Neurological: Positive: Alert Psychological Exam: Normal Skin Exam: Normal Diagnostics - Laboratory Lab Results: strep (-) Throat Pain/Nasal Course/Dx - Differential Dx/Diagnosis Provider Diagnosis: Pharyngitis, Right serous otitis media Discharge ED - Sign-Out/Discharge Documenting (check all that apply): Patient Departure All imaging exams completed and their final reports reviewed: No Studies - Discharge Plan Condition: Stable Disposition: HOME Prescriptions: predniSONE [Prednisone 20 MG TAB] 60 mg PO DAILY #6 tab Patient Education Materials: Pharyngitis (ED), Serous Otitis Media (ED) Forms: *Work Release Referrals: Tommy Issa MD [Primary Care Provider] - 4 Days (if not better) Additional Instructions: strep test negative recheck for new or worsening symptoms - Billing Disposition and Condition Condition: STABLE Disposition: Home
== END 2019-08-16 10:06 | disposition home or self-care (01) ==
LOC: UCEAST 09:27
DX: H65.91 Unspecified nonsuppurative otitis media, right ear (principal); J02.9 Acute pharyngitis, unspecified; F17.210 Nicotine dependence, cigarettes, uncomplicated; Z91.040 Latex allergy status
CPT/HCPCS: 87651; 99212; G0463; J7512

== ENCOUNTER 2019-10-18 08:19 | Emergency (ER) | payer OTHER ==
[2019-10-18 08:28] VITALS: BP 118/76
--- NOTE | 2019-10-18 08:45 | UC ---
Respiratory Complaint HPI - HPI Summary HPI Summary: had cold chills, fever and body aches started 5 day sago, that resolved with OTC cold meds, now coughing whenever lies flat, nasal congestion last lyndsay started coughing up thick dark yellow phlegm - History of Current Complaint Chief Complaint: UCRespiratory Stated Complaint: COUGH Time Seen by Provider: 10/18/19 08:34 Hx Obtained From: Patient Hx Last Menstrual Period: iud ?: No Onset/Duration: Gradual Onset Pain Intensity: 7 Character: Cough: Productive Aggravating Factors: Recumbent Position Alleviating Factors: Upright Position Associated Signs And Symptoms: Positive: Fever, Chills, URI, Nasal Congestion. Negative: Hemoptysis, Calf Pain, Sinus Discomfort - Allergies/Home Medications Allergies/Adverse Reactions: Allergies Allergy/AdvReac Type Severity Reaction Status Date / Time latex Allergy Hives Verified 10/18/19 08:28 PMH/Surg Hx/FS Hx/Imm Hx Previously Healthy: Yes - Surgical History Surgical History: Yes Surgery Procedure, Year, and Place: CHOLECYSTECTOMY 1997 [facility] [place]. RIGHT FOOT-EXTRA BONE REMOVED AGE 20 [facility] [place]. HEAD/NECK SURGERY 2005 [facility] [place]. RIGHT WRIST/HAND-2013 [facility]. Tonsills 08/14 - Family History Known Family History: Positive: Hypertension - Social History Occupation: Employed Full-time Lives: With Family Alcohol Use: Occasionally Alcohol Amount: 2 glasses liquor on w/e Substance Use Type: None Smoking Status (MU): Light Every Day Tobacco Smoker Type: Cigarettes Amount Used/How Often: 1/2 PPD for 14 yrs Length of Time of Smoking/Using Tobacco: 10 YRS Have You Smoked in the Last Year: Yes Cessation Counseling: Patient Advised to Stop - Immunization History Most Recent Tetanus Shot: UTD Review of Systems All Other Systems Reviewed And Are Negative: Yes Constitutional: Positive: Fever, Fatigue Skin: Positive: Negative. Negative: Rash Respiratory: Positive: Cough Cardiovascular: Positive: Negative Gastrointestinal: Positive: Negative. Negative: Diarrhea, Nausea Musculoskeletal: Positive: Negative Neurological: Positive: Negative Psychological: Positive: Negative Is Patient Immunocompromised?: No Physical Exam Triage Information Reviewed: Yes Appearance: Well-Appearing, No Pain Distress, Obese Vital Signs: Initial Vital Signs Temp 99.2 F 10/18/19 08:25 Pulse 79 10/18/19 08:25 Resp 16 10/18/19 08:25 BP 118/76 10/18/19 08:25 Pulse Ox 98 10/18/19 08:25 Vital Signs Reviewed: Yes Eyes: Positive: Conjunctiva Clear ENT: Positive: Nasal congestion, TMs normal, Other - thick yellow phlegm. Negative: Sinus tenderness Neck exam: Normal Respiratory Exam: Normal Respiratory: Positive: Lungs clear, Other: - productive cough, no evidence SOB Cardiovascular Exam: Normal Neurological Exam: Normal Psychological Exam: Normal Skin Exam: Normal Skin: Negative: Rashes Respiratory Course/Dx - Differential Dx/Diagnosis Differential Diagnosis/HQI/PQRI: Bronchitis, Influenza, Lower Resp Infection, Sinusitis Provider Diagnosis: Bronchitis Discharge ED - Sign-Out/Discharge Documenting (check all that apply): Patient Departure All imaging exams completed and their final reports reviewed: No Studies - Discharge Plan Condition: Good Disposition: HOME Prescriptions: Azithromycin TAB* [Zithromax TAB (Z-MARLA) 250 mg #6 tabs] 250 mg PO DAILY #1 tab Patient Education Materials: Acute Bronchitis (ED) Referrals: Tommy Issa MD [Primary Care Provider] - 3 Days (if no better) Additional Instructions: drink plenty of fluids rest start zithromax and take as directed Use sudafed and robitussin cough syrup for symptom relief - Billing Disposition and Condition Condition: GOOD Disposition: Home
== END 2019-10-18 08:55 | disposition home or self-care (01) ==
LOC: UCEAST 08:19
DX: J40 Bronchitis, not specified as acute or chronic (principal); E66.9 Obesity, unspecified; F17.210 Nicotine dependence, cigarettes, uncomplicated; Z91.040 Latex allergy status
CPT/HCPCS: 99212; G0463

== ENCOUNTER 2020-07-11 09:39 | Inpatient (IN) ==
[2020-07-11 11:16] LABS: ABS Lymphocytes 2.1 10^3/ul (1.0-4.8); ABS Monocytes 0.3 10^3/ul (0-0.8); ABS Neutrophils 6.6 10^3/ul (1.5-7.7); Eosinophil % 0.4 %; Hematocrit 42 % (35-47); Hemoglobin 14.4 g/dL (12.0-16.0); Lymphocyte % 23.1 %; Mean Corpuscular HGB Conc 34 g/dL (31-36); Mean Corpuscular Hemoglobin 30 pg (27-31); Mean Corpuscular Volume 87 fL (80-97); Mean Platelet Volume 10.2 fL (7.4-10.4); Platelet Count 272 10^3/uL (150-450); Red Blood Count 4.82 10^6 /uL (3.70-4.87); Red Cell Distribution Width 14 % (10-15)
[2020-07-11 11:32] LABS: ALT 11 U/L (7-52); AST 15 U/L (13-39); Albumin 4.6 g/dL (3.2-5.2); Albumin/Globulin Ratio 1.4 (1-3); Alkaline Phosphatase 65 U/L (34-104); Anion Gap 9 mmol/L (2-11); BUN/Creatinine Ratio 10.3 (8-20); Blood Urea Nitrogen 8 mg/dL (6-24); CO2 Carbon Dioxide 26 mmol/L (22-32); Calcium 9.8 mg/dL (8.6-10.3); Chloride 101 mmol/L (101-111); EGFR African American 102.9 (>60); EGFR Non-African American 85.1 (>60); Globulin 3.4 g/dL (2-4); Glucose 91 mg/dL (70-100); Potassium 3.8 mmol/L (3.5-5.0); Sodium 136 mmol/L (135-145)
[2020-07-11 11:56] LABS: Acetaminophen < 15 mcg/mL; Alcohol, S < 10 mg/dL (<10); Salicylate < 2.50 mg/dL (<30)
[2020-07-11 12:12] LABS: TSH Ultra Thyroid Stim Horm 0.57 mcIU/mL (0.34-5.60)
[2020-07-11] MEDS ORDERED: Al Hydrox/Mg Hydrox/Simet LIQ 30 ML UDC PO PRN (13:57)
[2020-07-11] MEDS ORDERED: METRONIDAZOLE VAGINAL VAGINAL SCH (21:00)
[2020-07-12 08:48] VITALS: BP 143/64
[2020-07-12] MEDS ORDERED: Vitamin THERAPEUTIC TAB PO SCH (09:00)
== END 2020-07-12 12:35 | disposition home or self-care (01) | DRG 754 ==
LOC: ED 09:39 → BSU 13:57 → ED 16:08
PROVIDERS: ADMIT Psychiatry & Neurology Psychiatry; ATTEND Psychiatry & Neurology Psychiatry

== ENCOUNTER 2021-05-08 22:53 | Inpatient (IN) ==
[2021-05-09 00:34] LABS: ABS Basophils 0.1 10^3/ul (0-0.2); ABS Eosinophils 0.1 10^3/ul (0-0.6); ABS Lymphocytes 2.4 10^3/ul (1.0-4.8); ABS Monocytes 0.6 10^3/ul (0-0.8); ABS Neutrophils 10.5 10^3/ul (1.5-7.7); Eosinophil % 0.9 %; Hematocrit 35 % (35-47); Hemoglobin 11.5 g/dL (12.0-16.0); Lymphocyte % 17.5 %; Mean Corpuscular HGB Conc 33 g/dL (31-36); Mean Corpuscular Hemoglobin 29 pg (27-31); Mean Corpuscular Volume 89 fL (80-97); Mean Platelet Volume 10.1 fL (7.4-10.4); Platelet Count 260 10^3/uL (150-450); Red Blood Count 3.91 10^6 /uL (3.70-4.87); Red Cell Distribution Width 14 % (10-15); White Blood Count 13.6 10^3/uL (3.5-10.8)
[2021-05-09] MEDS ORDERED: Buffered Lidocaine 1% SYRIN 1 ml INTRADERM ONE (00:44)
[2021-05-09] MEDS ORDERED: Lactated Ringers 1000 ml BAG 1,000 ML IV ONE (00:44)
[2021-05-09 00:53] LABS: Urine Benzodiazepine Screen None Detected (None Detect); Urine Opiates Screen None Detected (None Detect)
[2021-05-09] MEDS ORDERED: Lactated Ringers 1000 ml BAG 1,000 ML IV SCH ×2 (01:00→16:00)
[2021-05-09] MEDS ORDERED: Penicillin G Potassium IV 5,000,000 UNITS in NS 0.9% 100 ML BAG IVPB ONE (01:00)
[2021-05-09] MEDS: Penicillin G Potassium IV 3,000,000 UNITS in NS 0.9% 100 ml BAG 100 ML IVPB SCH ×3 (05:08→13:12)
[2021-05-09] MEDS ORDERED: Oxytocin in LR 20 UNITS/1,000 ML BAG IVPB SCH ×2 (08:00→16:00)
[2021-05-09] MEDS ORDERED: Witch Hazel PAD JAR TOPICAL PRN (15:31)
[2021-05-09] MEDS ORDERED: Measles, Mumps,Rubella VACC 0.5 ML/VIAL SUBCUT ONE (15:31)
[2021-05-09] MEDS ORDERED: Dibucaine 1% OINT 28.35 GM TUBE PR PRN (15:31)
[2021-05-09] MEDS ORDERED: ceFAZolin 1 GM ADVAN 1 GM in NS 0.9% 50 ML 50 ML IVPB ONE (15:33)
[2021-05-10 06:46] LABS: ABS Eosinophils 0.1 10^3/ul (0-0.6); ABS Lymphocytes 2.5 10^3/ul (1.0-4.8); ABS Monocytes 0.6 10^3/ul (0-0.8); ABS Neutrophils 9.2 10^3/ul (1.5-7.7); Eosinophil % 0.5 %; Hematocrit 32 % (35-47); Hemoglobin 10.7 g/dL (12.0-16.0); Lymphocyte % 19.9 %; Mean Corpuscular HGB Conc 33 g/dL (31-36); Mean Corpuscular Hemoglobin 30 pg (27-31); Mean Corpuscular Volume 89 fL (80-97); Mean Platelet Volume 10.1 fL (7.4-10.4); Platelet Count 222 10^3/uL (150-450); Red Blood Count 3.61 10^6 /uL (3.70-4.87); Red Cell Distribution Width 14 % (10-15); White Blood Count 12.4 10^3/uL (3.5-10.8)
[2021-05-11 08:21] VITALS: BP 127/67
== END 2021-05-11 12:18 | disposition home or self-care (01) | DRG 560 ==
LOC: MCHOBOUT 22:53 → MCHOB 05-09 00:05
PROVIDERS: ADMIT Obstetrics & Gynecology; ATTEND Obstetrics & Gynecology